=== PATIENT | male | born 1950 | race Caucasian/White ===

== ENCOUNTER 2016-11-16 15:23 | Inpatient (IN) | payer BC, MEDICARE ==
[~2016-11-16] VITALS: Ht 175.3 cm; Wt 87.1 kg
[~2016-11-16 15:23] MED LIST: ATOR10TA15 PO; CLON0.5T PO; IBUP200C PO
[2016-11-18] MEDS ORDERED: INSULIN HUMAN REGULAR 1,000 UNITS/10 ML VIAL SQ PRN (06:45)
[2016-11-18] MEDS ORDERED: SODIUM CHLORID 0.9% 500 ML IV PRN (06:45)
[2016-11-18] MEDS ORDERED: LACTATED RINGER'S 1000 ML INJ 1,000 ML IV SCH (06:45)
[2016-11-18] MEDS ORDERED: POVIDONE IODINE 5% (ANTISEPSIS KIT) 4 APPLICATIONS EACH NARE PRN (06:45)
[2016-11-18] MEDS ORDERED: ceFAZolin 1,000 MG/NS 100 ML IV SCH ×2 (06:45)
[2016-11-18] MEDS ORDERED: METOPROLOL TARTRATE 25 MG TAB PO PRN (06:45)
[2016-11-18] MEDS ORDERED: CHLORHEXIDINE GLUCONATE 2 % 1 PACK (2 CLOTHS) TOPICAL PRN (06:45)
[2016-11-18] MEDS ORDERED: LACTATED RINGER'S 1000 ML IV PRN (06:45)
[2016-11-18 07:10] VITALS: BP 147/81; PULSE 70; RESP 18; TEMP 97.9; O2SAT 97
[2016-11-18] MEDS ORDERED: GENTAMICIN SULFATE 80 MG/2 ML VIAL ONE (07:16)
[2016-11-18] MEDS ORDERED: GELFOAM SIZE 100 ONE (07:16)
[2016-11-18] MEDS ORDERED: THROMBIN (TOPICAL) 5,000 UNIT VIAL ONE (07:16)
[2016-11-18] MEDS ORDERED: LIDOCAINE 1%/EPINEPHrine 1:100,000 SOLN 20 ML VIAL ONE (07:17)
[2016-11-18] MEDS ORDERED: fentaNYL CITRATE 250 MCG/5 ML AMP ONE (07:33)
[2016-11-18] MEDS ORDERED: MIDAZOLAM HCL 2 MG/2 ML VIAL ONE (07:33)
[2016-11-18] MEDS ORDERED: ACETAMINOPHEN 1000 MG/100 ML VIAL IV ONE (07:33)
[2016-11-18] MEDS ORDERED: FAMOTIDINE 20 MG/2 ML VIAL ONE (07:34)
[2016-11-18] MEDS ORDERED: HYDROmorphone HCL PF 2 MG/ML VIAL ONE (07:34)
[2016-11-18] MEDS ORDERED: BUPIVACAINE LIPOSOME PF 1.3% 20 ML VIAL INFIL ONE (09:58)
[2016-11-18] MEDS ORDERED: HYDR-3583 PO (10:45)
--- NOTE | 2016-11-18 10:54 | PD.OP ---
Operative Report Date of Surgery: November 18, 2016 Preoperative Diagnosis: (1) Lumbar radiculopathy (2) Lumbar canal stenosis (3) Lumbar facet joint pain 1. L4 5 lateral recess stenosis 2. Right L5 radiculopathy 3. L4 5 facet arthropathy Postoperative Diagnosis: (1) Lumbar radiculopathy (2) Lumbar canal stenosis (3) Lumbar facet joint pain 1. L4 5 lateral recess stenosis 2. Right L5 radiculopathy 3. L4 5 facet arthropathy Procedure: 1. Right L4 5 decompressive semi-laminectomy, medial facetectomy-microtechnique 2. Right L4-5 rhizotomy Anesthesia: Gen. Surgeon: Walker Campos Counter Top Maker(s): Rajat Whitaker Operation and Findings: Procedure in detail: The patient was brought into the operating room and general endotracheal anesthesia induced without difficulty. SATNAM hose and sequential compression devices were placed. The Rocha catheter was placed. Lines were established by anesthesia. The patient was positioned on the concentric Sandro table with the side bolsters and all extremities appropriately padded. Appropriate time-out procedure was performed with all personnel present and in agreement. 1% Xylocaine with epinephrine was used for local infiltration over the incision site which was made just to the right of midline at the L4 5 level. The incision was carried sharply down to the lumbodorsal fascia which was incised adjacent to the spinous processes. Alejandro elevator was used for subperiosteal elevation of paraspinous musculature and fascia away from the lamina and spinous process. Muscle attachments to the spinous process were left intact. The deep self-retaining retractor was placed. The appropriate levels were verified with intraoperative C-arm. Microscope was moved into place and used for the remainder of the procedure including the closure. At the L4 5 level on the right side , the TPS drill with a 5 mm bone bur followed by the 4 mm mariana bur was used to remove the inferior two thirds of the more cephalad lamina and the superior aspect of the more caudal lamina along with a moderate amount of the bilateral medial facet, taking care not to disrupt the integrity of the facet or pars intra-articularis. The hypertrophied ligamentum flavum at the right L4 5 level was elevated away from the thecal sac with the thin ligament dissector and resected with the 15 blade knife and the Kerrison rongeur out to the level of the deep lateral recess to completely decompress the thecal sac and exiting right L5 nerve root. The exiting nerve root was followed to the level of the medial pedicle to ensure that it was well decompressed. The nerve roots appeared well decompressed at the end of the procedure. No spinal fluid leakage was encountered. The disc and annulus at each level was visualized to make sure that there was no significant disc displacement or herniation. Bleeding was carefully controlled with the bipolar forceps. Next, the micro-retractor was used to visualize the inferior right L3 4 facet, right L4 and L5 pars intra-articularis, and lateral aspect of the right L4 5 facet. The neuromuscular attachments to these structures were then dissected away from the vertebral structures and facet capsule and cauterized using the Bovie at low current to perform the right L4-5 facet denervation. The closure was performed with 0 Vicryl interrupted for the deep and superficial fascia, with 3-0 Vicryl interrupted subcutaneous closure, and 4-0 Vicryl running subcuticular closure. A dressing of sterile Mastisol, Steri- Strips, and Primapore was placed. The patient was taken to recovery room in stable condition. All counts were correct at the end of the case. Estimated blood loss was 50 cc. No specimen was sent to pathology Walker Campos MD November 18, 2016 10:54
--- NOTE | 2016-11-18 10:56 | RADRPT ---
EXAM DATE/TIME: 11/18/2016 09:02 [facility] COMPARISON: No previous studies available for comparison. INDICATIONS : L4-L5 decompression semi-laminectomy. MEDICAL HISTORY : None. SURGICAL HISTORY : ENCOUNTER: Initial ACUITY: 1 day PAIN SCORE: 10/10 LOCATION: lumbar FINDINGS: A single lateral view of the lumbar spine was performed. Surgical hardware is projected of the buck presser ior elements at L4-5. CONCLUSION: 1. Lateral view reveals surgical instruments projected over the posterior elements at the L4-5 level. Nic Avendaño MD on November 18, 2016 at 10:53 Board Certified Radiologist. This report was verified electronically.
[2016-11-18] MEDS ORDERED: DO NOT ADM ANY ANTICOAGULANT DRUGS PRN (11:30)
[2016-11-18 11:48] VITALS: BP 109/62; PULSE 70; RESP 16; TEMP 97.7; O2SAT 96
[2016-11-18] MEDS ORDERED: ONDANSETRON HCL 4 MG/2 ML VIAL IV PUSH ONE (12:00)
[2016-11-18] MEDS ORDERED: PROPOFOL 200 MG/20 ML AMP IV ONE (12:00)
[2016-11-18] MEDS ORDERED: NEOSTIGMINE 3 MG/3 ML SYR IV ONE (12:00)
[2016-11-18] MEDS ORDERED: ePHEDrine/NS 25 MG/5 ML SYR IV ONE (12:00)
--- NOTE | 2016-12-29 11:20 | HHI.DS ---
Discharge Summary Admission Date November 18, 2016 at 06:28 Discharge Date: November 18, 2016 Admitting Diagnosis (1) Lumbar radiculopathy Diagnosis: Principal ICD Code: M54.16 (2) Lumbar facet joint pain Diagnosis: Secondary ICD Code: M54.5 (3) Lumbar canal stenosis Diagnosis: Secondary ICD Code: M48.06 Procedures Procedure (): 1. Right L4 5 decompressive semi-laminectomy, medial facetectomy-microtechnique 2. Right L4-5 rhizotomy Hospital Course Patient presented to [facility] on for right L4-5 decompressive laminectomy & rhizotomy. He did well post-operatively and was discharged home that day. Pt Condition on Discharge: Good Discharge Disposition: Discharge Home Discharge Instructions DIET: Follow Instructions for: As Tolerated, No Restrictions ACTIVITIES You can perform: Weight Bearing As Alicia Activities to Avoid: Lifting/Bending, Strenuous Activity Chidi Eaton Dec 29, 2016 11:20
== END 2016-11-18 11:51 | disposition home or self-care (01) | DRG 520 ==
LOC: HSDI 11-18 06:28
PROVIDERS: ADMIT Neurological Surgery; ATTEND Neurological Surgery
PROC: 01NB0ZZ Release Lumbar Nerve, Open Approach (ICD-10-PCS; 2016-11-18)
PROC: 015B0ZZ Destruction of Lumbar Nerve, Open Approach (ICD-10-PCS; principal; 2016-11-18 08:18)
DX: M48.06 Spinal stenosis, lumbar region (principal); E78.5 Hyperlipidemia, unspecified; M47.26 Other spondylosis with radiculopathy, lumbar region; M51.16 Intervertebral disc disorders with radiculopathy, lumbar region; M25.551 Pain in right hip; F17.210 Nicotine dependence, cigarettes, uncomplicated; M19.90 Unspecified osteoarthritis, unspecified site
CPT/HCPCS: 72020; 76000; C9290; J0131; J1170; J1580; J2250; J2405; J2710; J3010; J7120